=== PATIENT | male | born 1950 | race Caucasian/White ===

== ENCOUNTER → 2021-10-16 15:03 | Outpatient (BNVA) | payer MEDICARE, OTHER, SELFPAY | PROVIDERS: PCP Internal Medicine; Visit Provider Urology | DX: N40.1 Benign prostatic hyperplasia with lower urinary tract symptoms (principal); N13.8 Other obstructive and reflux uropathy; R39.12 Poor urinary stream; R35.1 Nocturia; R97.20 Elevated prostate specific antigen [PSA] | CPT/HCPCS: 51798; 99212 ==

== ENCOUNTER → 2022-04-16 10:11 | Outpatient (BNVA) | payer MEDICARE, OTHER, SELFPAY | PROVIDERS: PCP Internal Medicine; Visit Provider Urology | DX: N40.1 Benign prostatic hyperplasia with lower urinary tract symptoms (principal); N13.8 Other obstructive and reflux uropathy; R39.12 Poor urinary stream; R35.1 Nocturia; Z79.899 Other long term (current) drug therapy | CPT/HCPCS: 51798; 99212 ==

== ENCOUNTER → 2023-04-05 13:20 | Outpatient (BNVA) | payer MEDICARE, OTHER, SELFPAY | PROVIDERS: PCP Internal Medicine; Visit Provider Urology | DX: R97.20 Elevated prostate specific antigen [PSA] (principal); N40.1 Benign prostatic hyperplasia with lower urinary tract symptoms; N13.8 Other obstructive and reflux uropathy; R35.1 Nocturia | CPT/HCPCS: 51798; 99212 ==

== ENCOUNTER 2023-10-06 10:38 | Outpatient (AMB) | payer MEDICARE, OTHER, SELFPAY ==
--- NOTE | 2023-10-06 10:40 | MHC.OFFVIS ---
Intake Intake Visit Reasons: 6m/PSA(psa?) Intake Note: Patient is Present for Follow Up PSA Urology Medication: Alfuzosin, Finasteride Antibiotic Allergies: none Blood Thinners:none PSA was done day after last scheduled follow up in March 2023 Allergies opioids Allergy (Intermediate, Uncoded 10/06/23 10:42) pass out HPI HPI Comments History of Present Illness Details Fito is a very pleasant male. He is a patient of Dr Holguin. He is seen for the following urologic conditions. - lower urinary tract symptoms Telemedicine Evaluation 15 min Consultation [facility] [place] Video BPH follow-up PSA 4.6 on finasteride - did have coffee morning on Current therapy - combination Minimal nocturia Normal STARR prior Repeat PSA 4 months Lower Urinary Tract Symptoms:? 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 Current visit is for?further evaluation of, lower urinary tract symptoms, predominate obstructive symptoms.? Current treatment includes?alfuzosin and finasteride.? Prostate Symptom Score?Moderate (9-19), Bother 3.? Symptoms include?incomplete emptying, weak stream, nocturia (>2), and are progressing.? Prior Prostate Score?unknown.? PSA?06/26 5.1, 08/27 4.3, 03/29 3.8, 09/29 4.6, ? Testing at next visit will include repeat PSA PFSH Medical History Benign prostatic hyperplasia with lower urinary tract symptoms Poor urinary stream Social History Alcohol intake: current Alcohol intake frequency: a few times a month Patient Tobacco Use Status: Former Tobacco user Review of Systems Const All systems reviewed & are unremarkable except as noted in HPI and below Reports no additional complaints Resp Reports no additional complaints GI Reports no additional complaints Reports as per HPI Musc Reports no additional complaints Physical Exam Telemedicine evaluation Appropriate responses Regular breathing rate and rhythm HEENT Head: Yes normal to inspection Ears: hearing grossly normal bilaterally Eyes General: appearance normal, both eyes and all related structures Neck Neck: Yes normal visual inspection Chest Chest palpation & inspection: normal inspection of the chest Resp Effort & Inspection: normal respiratory effort and able to speak in complete sentences Assessment & Plan Assessment & Plan (1) Elevated PSA: Code(s): R97.20 - Elevated prostate specific antigen [PSA] (2) BPH w urinary obs/LUTS: Code(s): N40.1 - Benign prostatic hyperplasia with lower urinary tract symptoms; N13.8 - Other obstructive and reflux uropathy Plan Four month follow-up repeat PSA Orders: Orders PSA,Total (Free>4and<10) 4 Months R97.20 - Elevated prostate specific antigen [PSA] Patient Instructions: Imaging studies, laboratory and physical exam results were discussed and reviewed in detail. No major barriers to patient understanding were identified. An opportunity to ask questions regarding the treatment plan was provided. All questions were answered. The patient expressed understanding and agreement with the above treatment plan. The patient is aware they should contact our office by phone for worsening of their current condition or the appearance of new urologic symptoms. Compliance is encouraged with any medications and followup testing that is ordered. It is a privilege to participate in the urologic care of your patient. If you have any questions or concerns regarding treatment for the above conditions, or other urologic issues, please do not hesitate to contact me. The office telephone contact is [phone]. This note is constructed using voice recognition software. While every effort has been made to ensure accuracy combat systems operator mine warfare errors may have been included. Yours sincerely, Dr León Long MD, [facility] - Urology Providers of Expert, Compassionate Care for the Genitourinary System Telehealth Telehealth Location of provider rendering services: practice address Location of patient: address on file Patient Identification confirmed using: Name, : Yes Telehealth method: video Patient verbally consented to treatment: Yes Patient verbally consented to billing insurance company: Yes Patient informed of any privacy concerns related to visit: Yes Coding Level of Care Code Tele Est Pt Level 3 (55075) Diagnoses Elevated PSA R97.20 BPH w urinary obs/LUTS N40.1; N13.8
== END 2023-10-06 11:26 | disposition home or self-care (01) ==
LOC: HO.HUSH 10:38
PROVIDERS: PCP Internal Medicine; Visit Provider Urology
DX: R97.20 Elevated prostate specific antigen [PSA] (principal); N40.1 Benign prostatic hyperplasia with lower urinary tract symptoms; N13.8 Other obstructive and reflux uropathy
CPT/HCPCS: 99213

== ENCOUNTER → 2023-10-06 10:38 | Outpatient (BNVA) | payer MEDICARE, OTHER, SELFPAY | PROVIDERS: PCP Internal Medicine; Visit Provider Urology ==

== ENCOUNTER 2024-02-02 09:59 | Outpatient (AMB) | payer MEDICARE, OTHER, SELFPAY ==
--- NOTE | 2024-02-02 10:01 | A.OFFVIS_ITS ---
Intake Intake Visit Reasons: 4m/PSA(back?)portal confirm Intake Note: Patient presents today for a follow up on PSA Meds- Finasteride,Alfuzosin Allergies to Antibiotic- No Known Allergies Blood Thinner- none Patient Symptoms: None Director Export Required: No Allergies opioids Allergy (Intermediate, Uncoded 02/02/24 10:03) pass out HPI HPI Comments 2 History of Present Illness Details Fito is a very pleasant male. He is a patient of Dr Holguin. He is seen for the following urologic conditions. - lower urinary tract symptoms Telemedicine Evaluation 15 min Consultation [employer] [place] Video attempted BPH follow-up PSA continues to rise Suggest prostate biopsy - per PCPT calculator has 15% risk high-grade Normal STARR prior Lower Urinary Tract Symptoms:? 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 Current visit is for?further evaluation of, lower urinary tract symptoms, predominate obstructive symptoms.? Current treatment includes?alfuzosin and finasteride.? Prostate Symptom Score?Moderate (9-19), Bother 3.? Symptoms include?incomplete emptying, weak stream, nocturia (>2), and are progressing.? Prior Prostate Score?unknown.? PSA?06/26 5.1, 08/27 4.3, 03/29 3.8, 09/29 4.6, 02/28 6.1 13% ? Testing at next visit will include repeat PSA [facility] Medical History Benign prostatic hyperplasia with lower urinary tract symptoms Poor urinary stream Social History Alcohol intake: current Alcohol intake frequency: a few times a month Patient Tobacco Use Status: Former Tobacco user Review of Systems Const All systems reviewed & are unremarkable except as noted in HPI and below Reports no additional complaints Resp Reports no additional complaints GI Reports no additional complaints Reports as per HPI Musc Reports no additional complaints Physical Exam Telemedicine evaluation Appropriate responses Regular breathing rate and rhythm HEENT Head: Yes normal to inspection Ears: hearing grossly normal bilaterally Eyes General: appearance normal, both eyes and all related structures Neck Neck: Yes normal visual inspection Chest Chest palpation & inspection: normal inspection of the chest Resp Effort & Inspection: normal respiratory effort and able to speak in complete sentences Assessment & Plan Assessment & Plan (1) Elevated PSA: Code(s): R97.20 - Elevated prostate specific antigen [PSA] Plan Risks and benefits regarding trans rectal ultrasound with prostate biopsy were discussed. Options of continued surveillance, no treatment and biopsy were offered. The risks include but are not limited to, urinary tract infection, sepsis, difficulty urinating, bleeding into the rectum or bladder that requires interve ntion and transfusion,and failure to diagnose prostate cancer. The patient understands the options and the risks involved. They wish to proceed. Printed information was provided to ensure he remains off anticoagulation for the appropriate length of time. He may require cardiology or PCP clearance. An antibiotic will be administered prior to, and following the procedure Prostate biopsy Medications: New levofloxacin Take day before, day of and day after procedure 500 mg PO ONCE 3 tabs 0RF 3 days R97.20 - Elevated prostate specific antigen [PSA] Patient Instructions: Imaging studies, laboratory and physical exam results were discussed and reviewed in detail. No major barriers to patient understanding were identified. An opportunity to ask questions regarding the treatment plan was provided. All questions were answered. The patient expressed understanding and agreement with the above treatment plan. The patient is aware they should contact our office by phone for worsening of their current condition or the appearance of new urologic symptoms. Compliance is encouraged with any medications and followup testing that is ordered. It is a privilege to participate in the urologic care of your patient. If you have any questions or concerns regarding treatment for the above conditions, or other urologic issues, please do not hesitate to contact me. The office telephone contact is [phone]. This note is constructed using voice recognition software. While every effort has been made to ensure accuracy sap mobility architect errors may have been included. Yours sincerely, Dr León Long MD, [facility] - Urology Providers of Expert, Compassionate Care for the Genitourinary System Telehealth Telehealth Location of provider rendering services: practice address Location of patient: address on file Patient Identification confirmed using: Name, : Yes Telehealth method: video Patient verbally consented to treatment: Yes Patient verbally consented to billing insurance company: Yes Patient informed of any privacy concerns related to visit: Yes Coding Level of Care Code Tele Est Pt Level 4 (38500) Diagnoses Elevated PSA R97.20
== END 2024-02-02 10:45 | disposition home or self-care (01) ==
LOC: HO.HUSH 10:00
PROVIDERS: PCP Internal Medicine; Visit Provider Urology
DX: R97.20 Elevated prostate specific antigen [PSA] (principal)
CPT/HCPCS: 99214

== ENCOUNTER → 2024-02-02 09:59 | Outpatient (BNVA) | payer MEDICARE, OTHER, SELFPAY | PROVIDERS: PCP Internal Medicine; Visit Provider Urology ==

== ENCOUNTER 2024-03-29 13:31 | Outpatient (REF) | payer MEDICARE, OTHER, SELFPAY ==
[2024-03-29 13:53] VITALS: BP 145/69; PULSE 79; RESP 18; TEMP 36.3; O2SAT 96; BMI 30.7
--- NOTE | 2024-03-29 14:24 | W.PM.OPN ---
Operative Note Operative Note Date of Service: 03/29/24 Narrative: Preoperative diagnosis: Elevated PSA Postoperative diagnosis: Elevated PSA Procedure: 1. transrectal ultrasound measurement of prostate 2. transrectal ultrasound-guided pudendal nerve block 3. transrectal ultrasound-guided prostate biopsy 12 core Surgeon: Dr. León Long Anesthetic: 10cc 1% lidocaine Indications for procedure: Elevated PSA 6.8 on finasteride Counselling: Technical aspects, risks and benefits of proposed procedure were discussed in full. All questions have been answered, written consent has been obtained and patient agrees to proceed. Procedure: The patient was brought into the procedure area and placed in a left lateral decubitus position. Patient identity confirmed. Perioperative antibiotics confirmed. Safety pause time out performed. STARR performed to dilate rectal sphincter Iodine 10cc with Gel was placed per rectum to reduce infection risk Eight hertz Demar ultrasound probe was placed transrectally without difficulty. The prostate was visualized. The portals were well demarcated, seminal vesicles were normal. No cystic structures were noted Small calcifications were noted at the surgical margin The prostate was otherwise homogeneous in nature The prostate was measured in 3 dimensions Prostatic Width: 5.7 Prostatic height: 5.7 Urethral length:6.2 Total volume equals : 106 gm An ultrasound-guided pudendal nerve block was performed using a 22 gauge spinal needle in the sagittal plane. 4 cc of 1% lidocaine placed at the junction of each seminal vesicle and 2 cc placed at the apex of the prostate. A 12 core biopsy was performed with 6 cores each side using an 18 gauge prostate biopsy gun. Two cores were taken at the apex, mid and base. Cores were spaced between lateral and medial. He tolerated the procedure well, minimal rectal bleeding. Was able to ambulate to bathroom after 5 minutes. Printed instructions regarding antibiotic use and common side effects such as low-grade temperature, potential infection and bleeding were given Pathology: 12 core prostate biopsy.
== END 2024-03-29 13:32 | disposition home or self-care (01) ==
LOC: HO.MS 13:31
PROVIDERS: PCP Internal Medicine; Visit Provider Urology
PROC: (CPT 55700; principal; 2024-03-29 14:00)
DX: C61 Malignant neoplasm of prostate (principal); R97.20 Elevated prostate specific antigen [PSA]
CPT/HCPCS: 55700; 76942; 88305

== ENCOUNTER → 2024-03-29 13:31 | Outpatient (BNV) | payer MEDICARE, OTHER, SELFPAY | PROVIDERS: PCP Internal Medicine; Visit Provider Urology | DX: R97.20 Elevated prostate specific antigen [PSA] (principal) | CPT/HCPCS: 55700; 76942 ==

== ENCOUNTER 2024-04-13 13:52 | Outpatient (AMB) | payer MEDICARE, OTHER, SELFPAY ==
--- NOTE | 2024-04-13 13:57 | A.OFFVIS_ITS ---
Intake Visit Reasons: Prostate bx results Intake Note: Patient is Present for Follow Up Biopsy Results Urology Medication: Finasteride (Patient states he is no longer on Alfuzosin) Antibiotic Allergies: None Blood Thinners:None Allergies opioids Allergy (Intermediate, Uncoded 04/13/24 13:59) pass out Medication List - Last Reconciled 04/13/24 by León Long MD alfuzosin ER 10 mg PO DAILY 90 days epinephrine IM DIRECTED finasteride 5 mg PO DAILY 90 days levofloxacin 500 mg PO ONCE 3 days omeprazole 20 mg PO DAILY HPI Comments Details: Fito is a very pleasant male. He is a patient of Dr Holguin. He is seen for the following urologic conditions. - lower urinary tract symptoms - prostate cancer Patient accompanied by Had accessed results through portal Has organized evaluation at [facility] for proton beam radiotherapy Long discussion today focused on diagnosis, staging and typical therapy with external beam radiation and hormones. Next initial step is to complete staging examination. Preferred PSMA PET-CT with prostate cancer avid agent. This can be organized for next week. Recommendation is for radiation based therapy with maximum androgen blockade. Traditional maximum androgen return blockade achieved with GnRH, antiandrogen and 5AR (Lupron, bicalutamide and Finasteride/dutasteride). Modern maximum androgen blockade achieved with GnRH, abiraterone, and enzalutamide. In this setting 18 month course of GnRH has been shown sufficient. Prostate cancer - 03/30 - multi core grade group 4 with relatively low PSA Normal STARR prior Noah score: 9 (4+5) (15% left base medial, 45% left MM, 50% right base medial, 50% right mid medial,and 30% right apex medial) 8 (4+4) (left apex medial 30%, right base lateral 5% , and right apex lateral 25%) Grade group: 5 and 4 Tumor quantitation: Number cores positive: 9 Total number of cores: 14 % of tissue involved: 23% Periprostatic fat inv.: Not identified Seminal vesicle inv.: Not identified Perineural inv.: Present Lymphovascular invasion: Not identified [place] Society for Clinical Oncology (ASCO) evidence-based guidelines and the National Comprehensive Cancer Network Guidelines have recommendations for the addition of second generation anti-androgens to androgen deprivation therapy (ADT) in men receiving radiation therapy (RT) for noncastrate locally advanced high and very high risk nonmetastatic or node positive prostate cancer (cT3N0/1). ADT with RT is an established standard of care treatment for men with high-risk prostate cancer. RTOG 9202 predatory animal exterminator ADT (24 months) significantly improved DFS (30%), local progression (46%, and OS (12% relative reduction) compared to short term ADT (4 months). Other similar studies included EORT 42118 and DART/ GICOR trial. The 5-year results of AbiRT were presented at L[facility] 2020. In this trial patients with unfavorable intermediate risk or low volume high risk prostate cancer (Eligibility included 2+ intermediate or 1 high NCCN risk factors and no metastatic disease) were treated with 6 months of abiraterone, prednisone, and depot LHRH agonist. The 5-year bPFS was 92%.This study suggested that a short course of complete androgen blockade (abiraterone with 5mg prednisone daily and LHRH agonist) and definitive RT may be beneficial without long-term toxicity as compared to 2-3 years of abiraterone and ADT. The NCCN Guidelines recommend use of anti-androgen in addition to ADT. Abiraterone can be added to EBRT and 2 years of ADT in patients with [id number] prostate cancer (Has at least one of the following: ? cT3b?cT4 ? Primary [place] pattern 5 ? 2 or 3 high-risk features ? >4 cores with Grade Group 4 or 5). 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 Current visit is for?further evaluation of, lower urinary tract symptoms, predominate obstructive symptoms.? Current treatment includes?finasteride.? Prostate Symptom Score?Moderate (9-19), Bother 3.? Symptoms include?incomplete emptying, weak stream, nocturia (>2), and are progressing.? Prior Prostate Score?unknown.? PSA?06/26 5.1, 08/27 4.3, 03/29 3.8, 09/29 4.6, 02/28 6.1 13% ? Testing at next visit will include repeat PSA [facility] Medical History Benign prostatic hyperplasia with lower urinary tract symptoms Poor urinary stream Social History Alcohol intake: current Alcohol intake frequency: a few times a month Patient Tobacco Use Status: Former Tobacco user Review of Systems Const Denies chills and Denies fever(s) Card Reports no additional complaints and Denies syncope Resp Denies cough GI Denies abdominal pain and Denies heartburn Reports as per HPI and Denies change in libido Neuro Denies syncope Psych Denies change in libido Endo Denies change in libido Physical Exam Const General: cooperative, healthy appearing, comfortable and no acute distress Orientation/consciousness: patient oriented x3 HEENT Face and sinus: Yes normal facial exam Mouth: moist mucous membranes Neck Neck: Yes normal visual inspection, Yes full ROM and Yes trachea midline Chest Chest palpation & inspection: normal inspection of the chest Resp Effort & Inspection: normal respiratory effort, able to speak in complete sentences and no respiratory distress GI Inspection: Yes normal to inspection Back/Spine/Pelvis Cervical Spine: normal cervical lordosis Thoracic/Lumbar Spine: thoracic and lumbar spine normal to inspection Skin General skin exam: no rashes or lesions noted Neuro General: patient oriented x3, gait normal, tone normal and moves all extremities Extrem General: Yes normal to inspection and Yes capillary refill normal Assessment & Plan Assessment & Plan (1) Prostate cancer: Comment: HIGH-GRADE, LOCALIZED, HIGH VOLUME DISEASE Code(s): C61 - Malignant neoplasm of prostate Category: Medical Plan PMSA scan Has upcoming external radiation oncology evaluation at [facility] Once scan complete would start bicalutamide for 2 weeks followed by GnRH, could also do degarelix injection Orders: Orders PET CT fusion skull to thigh 04/13/24 C61 - Malignant neoplasm of prostate Patient Instructions: Imaging studies, laboratory and physical exam results were discussed and reviewed in detail. No major barriers to patient understanding were identified. An opportunity to ask questions regarding the treatment plan was provided. All questions were answered. The patient expressed understanding and agreement with the above treatment plan. The patient is aware they should contact our office by phone for worsening of their current condition or the appearance of new urologic symptoms. Compliance is encouraged with any medications and followup testing that is ordered. It is a privilege to participate in the urologic care of your patient. If you have any questions or concerns regarding treatment for the above conditions, or other urologic issues, please do not hesitate to contact me. The office telephone contact is [phone]. This note is constructed using voice recognition software. While every effort has been made to ensure accuracy power press supervisor errors may have been included. Yours sincerely, Dr León Long MD, [facility] - Urology Providers of Expert, Compassionate Care for the Genitourinary System Coding Level of Care Code Est Pt Level 4 (61353) Diagnoses Prostate cancer C61
== END 2024-04-13 14:55 | disposition home or self-care (01) ==
PROVIDERS: PCP Internal Medicine; Visit Provider Urology
DX: C61 Malignant neoplasm of prostate (principal)
CPT/HCPCS: 99214

== ENCOUNTER → 2024-04-13 13:52 | Outpatient (BNVA) | payer MEDICARE, OTHER, SELFPAY | PROVIDERS: PCP Internal Medicine; Visit Provider Urology | DX: C61 Malignant neoplasm of prostate (principal) | CPT/HCPCS: 99212 ==